=== PATIENT | female | born 1950 | race Caucasian/White ===

== ENCOUNTER 2024-03-29 15:34 | Outpatient (REF) | payer MEDICAID, SELFPAY ==
[2024-03-29 17:27] LABS: MANUAL DIFF FLAG NO
[2024-03-29 17:33] LABS: Basophils Absolute Auto 0.1 X10*3/uL (0.0-0.2); Basophils Percent Auto 1.6 % (0-2); Eosinophils Absolute Auto 0.2 X10*3/uL (0.0-0.4); Eosinophils Percent Auto 2.8 % (0-4); Hematocrit 46.6 % (37.0-47.0); Hemoglobin 15.7 g/dl (12.0-16.0); Imm Gran Abs Auto 0.01 X10*3/uL (0.00-0.03); Imm Gran Pct Auto 0.2 % (0.0-0.4); Lymphocytes Absolute Auto 1.6 X10*3/uL (1.2-4.9); Lymphocytes Percent Auto 24.2 % (20-40); Mean Corpuscular HGB Conc 33.7 g/dl (31.0-35.0); Mean Corpuscular Volume 97.9 fL (80.0-98.0); Monocytes Absolute Auto 0.6 X10*3/uL (0.1-1.2); Monocytes Percent Auto 8.6 % (2-11); Neutrophils Percent Auto 62.6 % (45-73); Platelet Count 255 X10*3/uL (160-400); Red Blood Count 4.76 X10*6/uL (4.20-5.50); White Blood Count 6.4 X10*3/uL (4.8-10.8)
[2024-03-29 17:59] LABS: Alanine Aminotransferase 25 U/L (0-31); Albumin Level 4.5 g/dL (3.5-5.0); Alkaline Phosphatase 128 U/L (39-117); Anion Gap 16 (12-20); Aspartate Amino Transferase 30 U/L (5-31); Bilirubin Total 0.6 mg/dL (0.0-1.0); Blood Urea Nitrogen 15 mg/dL (9-16); C Reactive Protein < 0.10 mg/dL (< or = 0.50); Calcium 10.2 mg/dL (8.4-10.2); Carbon Dioxide 24 mmol/L (22-29); Chloride 106 mmol/L (96-108); Cholesterol 183 mg/dL (<200); Estimated Glomerular Filt Rate > 60; Glucose Random 94 mg/dL (60-115); HDL Cholesterol 79 mg/dL (>40); Iron 197 mcg/dL (30-160); LDL Cholesterol Calculated 86 mg/dL (<100); Lactate Dehydrogenase 342 U/L (122-220); Percent Iron Saturation 58 % (15-50); Potassium 4.1 mmol/L (3.3-5.1); Sodium 142 mmol/L (135-145); Total Iron Binding Capacity 337 mcg/dL (228-428); Total Protein 7.4 g/dL (6.5-8.0); Triglycerides 92 mg/dL (<150); Unsaturated Iron Binding 140 ug/dL
[2024-03-29 18:15] LABS: Ferritin 78 ng/mL (10-250); TSH reflex Free T4 1.36 uIU/mL (0.32-4.0); Vitamin D 25-OH Total 55.5 ng/mL (>30)
[2024-03-29 18:21] LABS: Folate 13.7 ng/mL (> or = 4.0); Vitamin B12 1350 pg/mL (200-900)
[2024-03-29 18:43] LABS: Erythrocyte Sedimentation Rate 2 MM/HR (0-20)
[2024-03-30 07:59] LABS: HIV AB/AG Nonreactive (Nonreactive); HIV Num 1 0.05 S/CO (0.00-0.99); ~HepC Num1 0.12 S/CO (0.00-0.79); ~Hepatitis C Antibody Nonreactive (Nonreactive)
[2024-03-30 08:20] LABS: Syphilis Screen Nonreactive (Nonreactive)
== END 2024-03-29 15:35 | disposition home or self-care (01) ==
LOC: HO.CHCLDS 15:34
PROVIDERS: Visit Provider Family Medicine
DX: R63.4 Abnormal weight loss (principal); Z13.9 Encounter for screening, unspecified
CPT/HCPCS: 36415; 80053; 80061; 82306; 82607; 82728; 82746; 83540; 83615; 84443; 85025; 85652; 86140; 86780; 86803; 87389

== ENCOUNTER 2024-04-19 14:33 | Outpatient (REF) | payer MEDICAID, SELFPAY ==
[2024-04-24 13:38] LABS: Zinc 67 mcg/dL (60-130)
== END 2024-04-19 14:34 | disposition home or self-care (01) ==
LOC: HO.CHCLDS 14:33
PROVIDERS: Visit Provider Family Medicine
DX: R63.4 Abnormal weight loss (principal); R13.10 Dysphagia, unspecified
CPT/HCPCS: 36415; 84630